=== PATIENT | male | born 1990 | race Hispanic/Latino ===

== ENCOUNTER 2022-09-14 19:51 | Inpatient (IN) | payer OTHER ==
[~2022-09-14 19:51] MED LIST: Iopamidol-370 76% 500 ML 1 ML ONE
[2022-09-14] MEDS ORDERED: FENTANYL 50 MCG/ML 1 ML VIAL ONE (20:01)
[2022-09-14] MEDS ORDERED: Ondansetron PF 4 MG/2 ML Vial ONE (20:21)
[2022-09-14] MEDS ORDERED: CEFAZOLIN 2 GM VIAL ONE (20:52)
[2022-09-14 20:57] LABS: Hemoglobin 15.3 g/dL (14.0-18.0); Mean Corpuscular HGB CONC 33.5 g/dL (32.0-36.0); Mean Corpuscular Hemoglobin 28.9 pg (27.0-31.0); Mean Corpuscular Volume 86.1 fl (78.0-98.0); Mean Platelet Volume 11.7 fL (7.4-10.4); Platelet Count 209 10x3/uL (130-400); RBC Distribution Width 12.4 % (11.5-14.5); Red Blood Cell (RBC) Count 5.31 mill/uL (4.70-6.10); White Blood Cell (WBC) Count 22.3 10x3/uL (4.8-10.8)
[2022-09-14] MEDS ORDERED: Cyclobenzaprine 10 MG TAB PO PRN (20:57)
[2022-09-14] MEDS ORDERED: hydrALAZINE 20 MG/ML VIAL SLOW IVP PRN (20:58)
[2022-09-14] MEDS ORDERED: Acetaminophen 325 MG TAB PO SCH (21:00)
[2022-09-14 21:13] LABS: INR-International Normal Ratio 1.1; Prothrombin Time 14.2 sec (12.0-14.7)
[2022-09-14 21:21] LABS: ALT (SGPT) 33 U/L (8-55); AST (SGOT) 30 U/L (5-34); Albumin 4.6 g/dL (3.5-5.0); Alkaline Phosphatase 90 U/L (40-110); Anion Gap 15 mmol/L (10-20); BUN (Urea Nitrogen) 23 mg/dL (8.9-20.6); Bilirubin, Total 0.8 mg/dL (0.2-1.2); Calc. Creatinine Clearance 0 mL/min (70-130); Calcium 9.4 mg/dL (7.8-10.44); Carbon Dioxide 19 mmol/L (22-29); Chloride 109 mmol/L (98-107); Estimated GFR 65; Glucose 123 mg/dL (70-105); Potassium 4.1 mmol/L (3.5-5.1); Protein, Total 7.6 g/dL (6.0-8.3); Sodium 139 mmol/L (136-145)
[2022-09-14] MEDS ORDERED: Morphine 4 MG/ML VIAL ONE (21:23)
[2022-09-14 21:37] LABS: Band 8 % (5-11); Lymphocytes 22 % (21-51); MDiff Complete? YES; Monocytes 3 % (0-10); Neutrophil 67 % (42-75)
[2022-09-14] MEDS ORDERED: Sodium Chloride 0.9% 1,000 ML IV SCH (21:45)
[2022-09-14 22:22] LABS: SARS-CoV-2 NAA Rapid Test Not Detected (NotDetected)
[2022-09-14] MEDS ORDERED: TETANUS, DIPHTHERIA TOX,ADULT (TDVAX) 0.5 ML VIAL IM ONE (23:00)
[2022-09-14] MEDS ORDERED: Morphine 4 MG/ML VIAL SLOW IVP PRN (23:00)
[2022-09-14] MEDS: Famotidine 20 MG TAB PO SCH (23:05)
[2022-09-14] MEDS: Senokot S 8.6-50 MG TAB PO SCH (23:05)
[2022-09-14] MEDS: traMADol HCl 50 MG TAB PO SCH (23:18)
[2022-09-14] MEDS: Acetaminophen 500 MG TAB PO SCH (23:18)
[2022-09-14] MEDS: traMADol HCl 50 MG TAB PO PRN (23:21)
[2022-09-14] MEDS: Sodium Chloride 0.9% 1,000 ML IV SCH (23:40)
[2022-09-15 00:11] LABS: Lactic Acid 2.2 mmol/L (0.5-2.2)
[2022-09-15 03:25] VITALS: BMI 35.1
[2022-09-15] MEDS: CEFAZOLIN 2 GM in Sodium Chloride 0.9% 100 ML IVPB SCH ×3 (05:52→21:36)
[2022-09-15] MEDS: Acetaminophen 500 MG TAB PO SCH ×3 (05:52→18:00)
[2022-09-15] MEDS: traMADol HCl 50 MG TAB PO PRN ×2 (05:53→21:37)
[2022-09-15] MEDS: traMADol HCl 50 MG TAB PO SCH ×3 (05:53→18:00)
[2022-09-15 06:11] LABS: Anion Gap 9 mmol/L (10-20); BUN (Urea Nitrogen) 21 mg/dL (8.9-20.6); Calc. Creatinine Clearance 180 mL/min (70-130); Calcium 8.1 mg/dL (7.8-10.44); Carbon Dioxide 23 mmol/L (22-29); Chloride 107 mmol/L (98-107); Estimated GFR 97; Glucose 139 mg/dL (70-105); Potassium 4.4 mmol/L (3.5-5.1); Sodium 135 mmol/L (136-145)
[2022-09-15 06:26] LABS: #Lymphocytes 1.1 thou/uL (1.20-3.40); #Monocytes 1.5 thou/uL (0.11-0.59); #Neutrophils 7.8 thou/uL (1.40-6.50); %Basophils 0.1 % (0.0-1.0); %Eosinophils 0.3 % (0.0-10.0); %Lymphocytes 10.4 % (21.0-51.0); %Monocytes 14.5 % (0.0-10.0); %Neutrophils 74.7 % (42.0-75.0); Hemoglobin 12.9 g/dL (14.0-18.0); Mean Corpuscular HGB CONC 32.9 g/dL (32.0-36.0); Mean Corpuscular Hemoglobin 28.8 pg (27.0-31.0); Mean Corpuscular Volume 87.6 fl (78.0-98.0); Mean Platelet Volume 11.2 fL (7.4-10.4); Platelet Count 154 10x3/uL (130-400); RBC Distribution Width 12.3 % (11.5-14.5); Red Blood Cell (RBC) Count 4.48 mill/uL (4.70-6.10); White Blood Cell (WBC) Count 10.5 10x3/uL (4.8-10.8)
[2022-09-15] MEDS: Ondansetron PF 4 MG/2 ML Vial IVP PRN (06:37)
[2022-09-15] MEDS: Sodium Chloride 0.9% 1,000 ML IV SCH ×3 (07:06→21:39)
[2022-09-15] MEDS: Polyethylene Glycol 3350 17 GM Packet PO SCH (07:20)
[2022-09-15] MEDS: Senokot S 8.6-50 MG TAB PO SCH ×2 (07:20→21:39)
[2022-09-15] MEDS: Famotidine 20 MG TAB PO SCH ×2 (07:46→21:39)
[2022-09-15] MEDS ORDERED: FLU VACC QS2022-23(6MOS UP)/PF 60 MCG/0.5 ML SYRINGE IM ONE (09:00)
[2022-09-15] MEDS: Bacitracin 1 PK TOP SCH ×2 (09:57→21:39)
[2022-09-15] MEDS ORDERED: Midazolam HCl 2 mg/2 ml Vial ONE (14:16)
[2022-09-15] MEDS ORDERED: fentaNYL PF 100 MCG/2 ML SYRINGE ONE (14:16)
[2022-09-15] MEDS ORDERED: Sodium Chloride 0.9% 100 ML ONE (14:28)
[2022-09-15] MEDS ORDERED: CEFAZOLIN 2 GM VIAL ONE (14:28)
[2022-09-15] MEDS ORDERED: PROPOFOL 200 MG/20 ML VIAL ONE (14:38)
[2022-09-15] MEDS ORDERED: Glycopyrrolate 0.2 MG/ML 5 ML SYRINGE ONE (14:38)
[2022-09-15] MEDS ORDERED: NEOSTIGMINE 3 MG/3 ML SYR 3 MG/3 ML SYRINGE ONE (14:38)
[2022-09-15] MEDS ORDERED: PHENYLEPHRINE-NS 100 MCG/ML 10 ML SYRINGE ONE (14:38)
[2022-09-15] MEDS ORDERED: Rocuronium Bromide 10 MG/ML (10ML VIAL) ONE (14:38)
[2022-09-15] MEDS ORDERED: HYDROmorphone 2 MG/ML VIAL ONE (15:18)
[2022-09-15] MEDS ORDERED: Promethazine HCl 25 MG/ML VIAL IM PRN (15:58)
[2022-09-15] MEDS ORDERED: Promethazine HCl 25 MG/ML VIAL IVPB PRN (15:58)
[2022-09-15] MEDS ORDERED: Ondansetron HCl/PF 4 MG/2 ML Vial IVP PRN (15:58)
[2022-09-15] MEDS ORDERED: HYDROmorphone 2 MG/ML VIAL SLOW IVP PRN (15:58)
[2022-09-15] MEDS ORDERED: Neomycin-Polymyxin 1 ML AMP ONE (16:31)
[2022-09-15] MEDS ORDERED: FENTANYL 50 MCG/ML 1 ML VIAL ONE ×2 (17:53→17:59)
[2022-09-15] MEDS: Cyclobenzaprine 10 MG TAB PO PRN (21:37)
[2022-09-16] MEDS: traMADol HCl 50 MG TAB PO SCH ×4 (00:58→17:37)
[2022-09-16] MEDS: Acetaminophen 500 MG TAB PO SCH ×4 (00:59→17:36)
[2022-09-16] MEDS: traMADol HCl 50 MG TAB PO PRN ×2 (03:29→09:06)
[2022-09-16] MEDS: CEFAZOLIN 2 GM in Sodium Chloride 0.9% 100 ML IVPB SCH ×3 (06:05→22:34)
[2022-09-16 06:15] LABS: #Lymphocytes 0.7 thou/uL (1.20-3.40); #Monocytes 1.1 thou/uL (0.11-0.59); #Neutrophils 9.4 thou/uL (1.40-6.50); %Eosinophils 0.2 % (0.0-10.0); %Lymphocytes 5.9 % (21.0-51.0); %Monocytes 9.9 % (0.0-10.0); Hemoglobin 10.6 g/dL (14.0-18.0); Mean Corpuscular HGB CONC 32.9 g/dL (32.0-36.0); Mean Corpuscular Hemoglobin 28.6 pg (27.0-31.0); Mean Corpuscular Volume 86.8 fl (78.0-98.0); Mean Platelet Volume 11.3 fL (7.4-10.4); Platelet Count 133 10x3/uL (130-400); RBC Distribution Width 12.1 % (11.5-14.5); Red Blood Cell (RBC) Count 3.71 mill/uL (4.70-6.10); White Blood Cell (WBC) Count 11.2 10x3/uL (4.8-10.8)
[2022-09-16 06:23] LABS: Anion Gap 13 mmol/L (10-20); BUN (Urea Nitrogen) 11 mg/dL (8.9-20.6); CK (CPK) 2838 U/L (30-200); Calc. Creatinine Clearance 208 mL/min (70-130); Calcium 8.1 mg/dL (7.8-10.44); Carbon Dioxide 22 mmol/L (22-29); Chloride 104 mmol/L (98-107); Estimated GFR 115; Glucose 167 mg/dL (70-105); Magnesium 1.9 mg/dL (1.6-2.6); Phosphorus 1.9 mg/dL (2.3-4.7); Potassium 4.1 mmol/L (3.5-5.1); Sodium 135 mmol/L (136-145)
[2022-09-16] MEDS ORDERED: Sodium Phosphate 30 MMOL in Sodium Chloride 0.9% 250 ML 250 ML IVPB SCH (07:45)
[2022-09-16] MEDS ORDERED: traMADol HCl 50 MG TAB PO PRN (09:00)
[2022-09-16] MEDS: Ibuprofen 200 MG TAB PO SCH ×2 (09:07→17:37)
[2022-09-16] MEDS: Famotidine 20 MG TAB PO SCH ×2 (09:08→22:33)
[2022-09-16] MEDS: Bacitracin 1 PK TOP SCH ×2 (09:08→22:32)
[2022-09-16] MEDS: Senokot S 8.6-50 MG TAB PO SCH ×2 (09:08→22:33)
[2022-09-16] MEDS: Polyethylene Glycol 3350 17 GM Packet PO SCH (09:08)
[2022-09-16] MEDS: Sodium Chloride 0.9% 1,000 ML IV SCH ×3 (09:10→22:32)
[2022-09-16] MEDS ORDERED: Enoxaparin Sodium 30 MG/0.3 ML SYRINGE SC SCH (09:45)
[2022-09-16] MEDS: Cyclobenzaprine 10 MG TAB PO PRN (10:36)
[2022-09-16] MEDS ORDERED: traMADol HCl 50 MG TAB PO SCH (12:00)
[2022-09-16] MEDS: Enoxaparin Sodium 30 MG/0.3 ML SYRINGE SC SCH (22:34)
[2022-09-17] MEDS: traMADol HCl 50 MG TAB PO SCH ×4 (00:47→18:29)
[2022-09-17] MEDS: Acetaminophen 500 MG TAB PO SCH ×4 (00:48→21:16)
[2022-09-17] MEDS: Ibuprofen 200 MG TAB PO SCH ×3 (00:48→18:30)
[2022-09-17 06:00] LABS: #Basophils 0.1 thou/uL (0.0-0.2); #Eosinphils 0.1 thou/uL (0.0-0.7); #Lymphocytes 1.1 thou/uL (1.20-3.40); #Monocytes 1.2 thou/uL (0.11-0.59); #Neutrophils 6.2 thou/uL (1.40-6.50); %Basophils 1.5 % (0.0-1.0); %Eosinophils 0.7 % (0.0-10.0); %Lymphocytes 12.4 % (21.0-51.0); %Monocytes 14.1 % (0.0-10.0); %Neutrophils 71.4 % (42.0-75.0); Hemoglobin 9.6 g/dL (14.0-18.0); Mean Corpuscular Hemoglobin 29.1 pg (27.0-31.0); Mean Corpuscular Volume 88.1 fl (78.0-98.0); Mean Platelet Volume 10.9 fL (7.4-10.4); Platelet Count 113 10x3/uL (130-400); RBC Distribution Width 12.1 % (11.5-14.5); White Blood Cell (WBC) Count 8.7 10x3/uL (4.8-10.8)
[2022-09-17] MEDS: CEFAZOLIN 2 GM in Sodium Chloride 0.9% 100 ML IVPB SCH ×3 (06:08→21:19)
[2022-09-17] MEDS: Sodium Chloride 0.9% 1,000 ML IV SCH (06:09)
[2022-09-17] MEDS ORDERED: Acetaminophen/Codeine 30-300mg Tablet PO SCH (08:15)
[2022-09-17] MEDS: Ascorbic Acid 500 mg Chewable Tablet PO SCH ×2 (09:02→21:17)
[2022-09-17] MEDS: Ferrous Sulfate 325 MG TAB PO SCH ×2 (09:02→18:29)
[2022-09-17] MEDS: Famotidine 20 MG TAB PO SCH ×2 (09:03→21:17)
[2022-09-17] MEDS: Bacitracin 1 PK TOP SCH ×2 (09:03→21:18)
[2022-09-17] MEDS: Enoxaparin Sodium 30 MG/0.3 ML SYRINGE SC SCH ×2 (09:03→21:17)
[2022-09-17] MEDS: Polyethylene Glycol 3350 17 GM Packet PO SCH (09:04)
[2022-09-17] MEDS: Senokot S 8.6-50 MG TAB PO SCH (09:05)
[2022-09-18] MEDS: traMADol HCl 50 MG TAB PO SCH ×4 (01:25→17:47)
[2022-09-18] MEDS: Ibuprofen 200 MG TAB PO SCH ×3 (01:26→17:47)
[2022-09-18] MEDS: Acetaminophen 500 MG TAB PO SCH ×4 (03:32→20:56)
[2022-09-18] MEDS: Ondansetron PF 4 MG/2 ML Vial IVP PRN (05:54)
[2022-09-18] MEDS: CEFAZOLIN 2 GM in Sodium Chloride 0.9% 100 ML IVPB SCH ×2 (05:58→13:55)
[2022-09-18] MEDS: Cyclobenzaprine 10 MG TAB PO PRN (09:21)
[2022-09-18] MEDS: Ascorbic Acid 500 mg Chewable Tablet PO SCH ×2 (09:22→20:56)
[2022-09-18] MEDS: Famotidine 20 MG TAB PO SCH ×2 (09:22→20:56)
[2022-09-18] MEDS: Ferrous Sulfate 325 MG TAB PO SCH ×2 (09:22→17:47)
[2022-09-18] MEDS: Sodium Chloride 0.9% 1,000 ML IV SCH ×2 (09:22→17:48)
[2022-09-18] MEDS: Enoxaparin Sodium 30 MG/0.3 ML SYRINGE SC SCH ×2 (09:22→20:57)
[2022-09-18] MEDS: Scopolamine 1.5 mg/72 hour Patch TD SCH (09:22)
[2022-09-18] MEDS: Bacitracin 1 PK TOP SCH ×2 (09:22→20:57)
[2022-09-19] MEDS: traMADol HCl 50 MG TAB PO SCH ×5 (00:25→23:49)
[2022-09-19] MEDS: Ibuprofen 200 MG TAB PO SCH ×3 (00:25→16:15)
[2022-09-19] MEDS: Acetaminophen 500 MG TAB PO SCH ×4 (02:49→20:03)
[2022-09-19 06:08] LABS: #Eosinphils 0.2 thou/uL (0.0-0.7); #Lymphocytes 1.4 thou/uL (1.20-3.40); #Monocytes 0.8 thou/uL (0.11-0.59); #Neutrophils 4.2 thou/uL (1.40-6.50); %Basophils 0.2 % (0.0-1.0); %Eosinophils 2.7 % (0.0-10.0); %Lymphocytes 21.3 % (21.0-51.0); %Monocytes 12.1 % (0.0-10.0); %Neutrophils 63.7 % (42.0-75.0); Hemoglobin 9.3 g/dL (14.0-18.0); Mean Corpuscular HGB CONC 32.5 g/dL (32.0-36.0); Mean Corpuscular Hemoglobin 28.8 pg (27.0-31.0); Mean Corpuscular Volume 88.5 fl (78.0-98.0); Mean Platelet Volume 9.9 fL (7.4-10.4); Platelet Count 164 10x3/uL (130-400); RBC Distribution Width 12.3 % (11.5-14.5); Red Blood Cell (RBC) Count 3.22 mill/uL (4.70-6.10); White Blood Cell (WBC) Count 6.7 10x3/uL (4.8-10.8)
[2022-09-19 06:30] LABS: Anion Gap 8 mmol/L (10-20); BUN (Urea Nitrogen) 10 mg/dL (8.9-20.6); CK (CPK) 699 U/L (30-200); Calc. Creatinine Clearance 261 mL/min (70-130); Calcium 8.2 mg/dL (7.8-10.44); Carbon Dioxide 28 mmol/L (22-29); Chloride 105 mmol/L (98-107); Estimated GFR 123; Glucose 99 mg/dL (70-105); Magnesium 1.9 mg/dL (1.6-2.6); Phosphorus 3.1 mg/dL (2.3-4.7); Potassium 3.9 mmol/L (3.5-5.1); Sodium 137 mmol/L (136-145)
[2022-09-19] MEDS: Bacitracin 1 PK TOP SCH ×2 (09:51→20:04)
[2022-09-19] MEDS: Enoxaparin Sodium 30 MG/0.3 ML SYRINGE SC SCH ×2 (09:51→20:04)
[2022-09-19] MEDS: Ferrous Sulfate 325 MG TAB PO SCH ×2 (09:52→16:15)
[2022-09-19] MEDS: Saccharomyces boulardii 250 MG CAP PO SCH (09:52)
[2022-09-19] MEDS: Famotidine 20 MG TAB PO SCH ×2 (09:52→20:03)
[2022-09-19] MEDS: Ascorbic Acid 500 mg Chewable Tablet PO SCH ×2 (09:52→20:03)
[2022-09-20] MEDS: Ibuprofen 200 MG TAB PO SCH ×3 (01:29→17:38)
[2022-09-20] MEDS: Acetaminophen 500 MG TAB PO SCH ×4 (03:23→20:53)
[2022-09-20] MEDS: traMADol HCl 50 MG TAB PO SCH ×3 (05:17→17:38)
[2022-09-20] MEDS: Cyclobenzaprine 10 MG TAB PO PRN (05:20)
[2022-09-20] MEDS: Enoxaparin Sodium 30 MG/0.3 ML SYRINGE SC SCH ×2 (07:57→20:51)
[2022-09-20] MEDS: Saccharomyces boulardii 250 MG CAP PO SCH (07:57)
[2022-09-20] MEDS: Famotidine 20 MG TAB PO SCH ×2 (07:57→20:54)
[2022-09-20] MEDS: Ascorbic Acid 500 mg Chewable Tablet PO SCH ×2 (07:57→20:54)
[2022-09-20] MEDS: Ferrous Sulfate 325 MG TAB PO SCH ×2 (07:57→17:39)
[2022-09-20] MEDS: Bacitracin 1 PK TOP SCH ×2 (07:57→20:54)
[2022-09-20] MEDS: Docusate 100 MG CAP PO SCH ×2 (08:35→20:52)
[2022-09-20] MEDS ORDERED: Pregabalin 50 MG CAP PO SCH (11:15)
[2022-09-20] MEDS: Senokot S 8.6-50 MG TAB PO SCH (20:52)
[2022-09-20] MEDS: Pregabalin 50 MG CAP PO SCH (20:53)
[2022-09-21] MEDS: traMADol HCl 50 MG TAB PO SCH ×4 (00:30→17:53)
[2022-09-21] MEDS: Ibuprofen 200 MG TAB PO SCH ×3 (00:30→17:53)
[2022-09-21] MEDS: Acetaminophen 500 MG TAB PO SCH ×4 (02:49→20:59)
[2022-09-21] MEDS: Enoxaparin Sodium 30 MG/0.3 ML SYRINGE SC SCH ×2 (08:27→21:00)
[2022-09-21] MEDS: Docusate 100 MG CAP PO SCH (08:28)
[2022-09-21] MEDS: Famotidine 20 MG TAB PO SCH ×2 (08:28→21:19)
[2022-09-21] MEDS: Senokot S 8.6-50 MG TAB PO SCH ×2 (08:28→20:59)
[2022-09-21] MEDS: Bacitracin 1 PK TOP SCH ×2 (08:28→21:00)
[2022-09-21] MEDS: Ferrous Sulfate 325 MG TAB PO SCH ×2 (08:29→17:53)
[2022-09-21] MEDS: Pregabalin 50 MG CAP PO SCH ×2 (08:29→20:58)
[2022-09-21] MEDS: Scopolamine 1.5 mg/72 hour Patch TD SCH (08:30)
[2022-09-21] MEDS: Ascorbic Acid 500 mg Chewable Tablet PO SCH ×2 (08:30→17:53)
[2022-09-21] MEDS: Polyethylene Glycol 3350 17 GM Packet PO SCH (08:30)
[2022-09-22] MEDS: Ibuprofen 200 MG TAB PO SCH ×3 (00:14→18:06)
[2022-09-22] MEDS: traMADol HCl 50 MG TAB PO SCH ×5 (00:14→23:27)
[2022-09-22] MEDS: Acetaminophen 500 MG TAB PO SCH ×4 (01:08→20:38)
[2022-09-22] MEDS: Famotidine 20 MG TAB PO SCH ×2 (08:45→20:39)
[2022-09-22] MEDS: Ascorbic Acid 500 mg Chewable Tablet PO SCH ×2 (08:46→18:05)
[2022-09-22] MEDS: Enoxaparin Sodium 30 MG/0.3 ML SYRINGE SC SCH ×2 (08:46→20:39)
[2022-09-22] MEDS: Senokot S 8.6-50 MG TAB PO SCH ×2 (08:46→20:39)
[2022-09-22] MEDS: Ferrous Sulfate 325 MG TAB PO SCH ×2 (08:46→18:05)
[2022-09-22] MEDS: Bacitracin 1 PK TOP SCH ×2 (08:46→20:39)
[2022-09-22] MEDS: Pregabalin 50 MG CAP PO SCH ×2 (08:48→20:39)
[2022-09-22] MEDS: Polyethylene Glycol 3350 17 GM Packet PO SCH (15:31)
[2022-09-23] MEDS: Acetaminophen 500 MG TAB PO SCH ×4 (01:26→20:09)
[2022-09-23] MEDS: Ibuprofen 200 MG TAB PO SCH ×3 (01:26→17:46)
[2022-09-23] MEDS: traMADol HCl 50 MG TAB PO SCH ×3 (06:32→17:46)
[2022-09-23] MEDS: Ferrous Sulfate 325 MG TAB PO SCH ×2 (09:08→17:45)
[2022-09-23] MEDS: Enoxaparin Sodium 30 MG/0.3 ML SYRINGE SC SCH ×2 (09:08→20:10)
[2022-09-23] MEDS: Bacitracin 1 PK TOP SCH ×2 (09:08→20:09)
[2022-09-23] MEDS: Senokot S 8.6-50 MG TAB PO SCH ×2 (09:08→20:10)
[2022-09-23] MEDS: Ascorbic Acid 500 mg Chewable Tablet PO SCH ×2 (09:08→17:46)
[2022-09-23] MEDS: Famotidine 20 MG TAB PO SCH ×2 (09:08→20:10)
[2022-09-23] MEDS: Pregabalin 50 MG CAP PO SCH ×2 (09:09→20:10)
[2022-09-23] MEDS: Polyethylene Glycol 3350 17 GM Packet PO SCH (09:10)
[2022-09-24] MEDS: traMADol HCl 50 MG TAB PO SCH ×4 (00:04→17:32)
[2022-09-24] MEDS: Ibuprofen 200 MG TAB PO SCH ×3 (00:04→17:33)
[2022-09-24] MEDS: Acetaminophen 500 MG TAB PO SCH ×3 (02:20→14:55)
[2022-09-24] MEDS: Ascorbic Acid 500 mg Chewable Tablet PO SCH ×2 (09:16→17:32)
[2022-09-24] MEDS: Enoxaparin Sodium 30 MG/0.3 ML SYRINGE SC SCH (09:16)
[2022-09-24] MEDS: Famotidine 20 MG TAB PO SCH (09:16)
[2022-09-24] MEDS: Ferrous Sulfate 325 MG TAB PO SCH ×2 (09:16→17:32)
[2022-09-24] MEDS: Bacitracin 1 PK TOP SCH (09:17)
[2022-09-24] MEDS: Pregabalin 50 MG CAP PO SCH (09:17)
[2022-09-24] MEDS: Senokot S 8.6-50 MG TAB PO SCH (09:17)
[2022-09-24] MEDS: Polyethylene Glycol 3350 17 GM Packet PO SCH (09:18)
[2022-09-24] MEDS: Scopolamine 1.5 mg/72 hour Patch TD SCH (09:19)
[2022-09-24 18:19] VITALS: BP 117/72; TEMP 97.9
== END 2022-09-24 19:27 | DRG 958 ==
LOC: ERS 19:51 → SURG A 20:58
PROVIDERS: ADMIT Surgery; ATTEND Surgery
PROC: 0QSG04Z Reposition Right Tibia with Internal Fixation Device, Open Approach (ICD-10-PCS; principal; 2022-09-15)
PROC: 0W9J0ZZ Drainage of Pelvic Cavity, Open Approach (ICD-10-PCS; 2022-09-15)
DX: S82.141A Displaced bicondylar fracture of right tibia, initial encounter for closed fracture (principal); S32.392B Other fracture of left ilium, initial encounter for open fracture; D62 Acute posthemorrhagic anemia; T79.6XXA Traumatic ischemia of muscle, initial encounter; N17.9 Acute kidney failure, unspecified; S22.21XA Fracture of manubrium, initial encounter for closed fracture; E87.1 Hypo-osmolality and hyponatremia; Z20.822 Contact with and (suspected) exposure to COVID-19; Z23 Encounter for immunization; E83.39 Other disorders of phosphorus metabolism; S82.452A Displaced comminuted fracture of shaft of left fibula, initial encounter for closed fracture; V43.52XA Car driver injured in collision with other type car in traffic accident, initial encounter; Y92.410 Unspecified street and highway as the place of occurrence of the external cause
CPT/HCPCS: 36415; 70450; 71045; 71260; 72125; 72170; 74177; 80048; 80053; 82550; 83605; 83735; 84100; 84484; 85025; 85520; 85610; 85730; 86850; 86900; 86901; 87811; 90714; 93005; 96365; 96375; C1713; G0390; J1170; J1650; J2250; J2270; J2405; J2704; J3010; J3490; J7050; Q9967; U0002